=== PATIENT | male | born 1960 | race Two or more races ===

== ENCOUNTER 2017-12-12 22:13 | Emergency (ER) | payer OTHER ==
[~2017-12-12] VITALS: Ht 172.7 cm; Wt 88.7 kg
[2017-12-12] MEDS ORDERED: IBUPROFEN 600 MG TAB PO ONE ×2 (22:26→22:30)
[2017-12-12 22:27] VITALS: BP 121/68
[2017-12-12 23:16] LABS: Basophils # (auto) 0 uL; Basophils % (auto) 0.3 % (0.0-2.0); Eosinophils # (auto) 0 uL; Hematocrit 41.5 % (41.0-53.0); Hemoglobin 14.4 g/dL (13.5-17.5); Lymphocytes # (auto) 0.4 uL; Lymphocytes % (auto) 4.7 % (10.0-50.0); Mean Corpuscular Hemoglobin 29.5 pg (28.0-32.0); Mean Corpuscular Hgb Conc. 34.6 g/dL (32.0-36.0); Mean Corpuscular Volume 85.3 fL (80.0-100.0); Monocytes # (auto) 0.4 uL; Monocytes % (auto) 5.4 % (0.0-12.0); Neutrophils # (auto) 7.3 uL; Neutrophils % (auto) 89.6 % (37.0-80.0); Platelet Count (auto) 137 10^3/uL (140-450); Red Blood Cells 4.86 10^6/uL (4.5-5.90); Red Cell Distribution Width 13.4 % (11.8-14.3); White Blood Cell 8.2 10^3/uL (4.4-10.8)
[2017-12-12 23:36] LABS: Calcium 8.2 mg/dL (8.5-10.1); Potassium 3.3 mmol/L (3.5-5.1)
[2017-12-12 23:38] LABS: BUN/Creatinine Ratio 8.6
[2017-12-12 23:45] LABS: Bilirubin, Total 1.3 mg/dL (0.2-1.0)
[2017-12-13] MEDS ORDERED: ONDANSETRON ODT 4 MG TAB PO ONE (01:30)
[2017-12-13] MEDS ORDERED: cefTRIAXone SOD 1,000 MG VL IM ONE (01:30)
[2017-12-13] MEDS ORDERED: ACETAMINOPHEN/CODEINE#3 (300/30mg) TAB PO ONE (01:30)
== END 2017-12-13 01:54 | disposition home or self-care (01) ==
LOC: ER 22:13
DX: R50.9 Fever, unspecified (principal); R19.7 Diarrhea, unspecified
CPT/HCPCS: 36415; 80053; 85025; 96372; 99284; J0696; Q0162